=== PATIENT | male | born 1980 | race Two or more races ===

== ENCOUNTER 2020-07-18 21:42 | Emergency (ER) | payer SELFPAY ==
[~2020-07-18] VITALS: Ht 132.1 cm; Wt 52.2 kg
[2020-07-18 21:45] VITALS: BP 138/70
--- NOTE | 2020-07-18 21:48 | Emergency Room Report ---
History of Present Illness General Chief Complaint: Abdominal Pain Source: Patient (Nikhil Paz MD) Present Illness HPI Disclaimer: Please note that this report is being documented using DRAGON technology. This can lead to erroneous entry secondary to incorrect interpretation by the dictating instrument. HPI: 39-year-old male presents for evaluation abdominal pain. 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 He is complaining of intermittent abdominal pain in the upper epigastrium and left upper quadrant. States he has been drinking alcohol. Cannot quantify how much. Denies other drug use. Denies history of intra-abdominal surgery. Denies nausea, vomiting, diarrhea, fever. Reports some burning chest pain and burning pain in the neck as well. Denies shortness of breath, cough, fever, chills. PMH: Reviewed PSH: Reviewed Allergies: Reviewed Social Hx: Alcohol use, Denies drug use (Nikhil Paz MD) Allergies: Coded Allergies: No Known Allergies (Unverified , 07/18/20) COVID-19 Screening Contact w/high risk pt: No Experienced COVID-19 symptoms?: No COVID-19 Testing performed OPTICIANRY TEACHER: No (Nikhil Paz MD) Nursing Documentation-PMH Past Medical History: No Stated History (Nikhil Paz MD) Review of Systems All Other Systems: negative except mentioned in HPI (Nikhil Paz MD) Physical Exam Vital Signs Date Time Temp Pulse Resp B/P (MAP) Pulse Ox O2 Delivery O2 Flow Rate FiO2 07/18/20 21:34 98.4 150 18 138/70 (92) 99 Room Air General: Awake and alert, no acute distress HEENT: NC/AT. EOMI. Cardiovascular: RRR. S1 and S2 normal. No murmur appreciated Resp: Normal work of breathing. No cough, wheezing or crackles appreciated Abdomen: Abdomen is soft, nondistended. Mild tenderness in the epigastrium. No rebound. Negative Carballo's. No masses. Skin: Intact. No abrasions, laceration or rash over the exposed skin MSK: Normal tone and bulk. Moving all extremities. No obvious deformity. Neuro: Awake and alert. Mentating appropriately. (Nikhil Paz MD) Medical Decision Making Diagnostic Impression: Primary Impression: Alcohol dependence Qualified Codes: F10.20 - Alcohol dependence, uncomplicated Additional Impressions: Alcoholic liver disease, unspecified ARF (acute renal failure) Qualified Codes: N17.9 - Acute kidney failure, unspecified New onset type 2 diabetes mellitus ER Course 39-year-old male presents for evaluation of abdominal pain without nausea or vomiting. Differential includes is not limited to gastritis, gastroenteritis, GERD, ACS, pancreatitis, cholecystitis, alcohol abuse, substance abuse among others. Well-appearing with stable vital signs. No acute distress. Labs ordered. Patient signed out to oncoming physician pending results and ultimate disposition. (Nikhil Paz MD) ER Course Signed out to me. He presents with chief plaint abdominal pain. He admits to alcohol use. Last use was couple days ago. No alcohol intoxication here. He does have enlarged liver with elevated LFTs. Most likely secondary to alcoholic liver disease. He also has new onset diabetes. Will discharge home. No evidence of DKA. (Manolo Guevara MD) EKG Diagnostic Results Rate: normal Rhythm: NSR ST Segments: no acute changes (Manolo Guevara MD) Rhythm Strip Diag. Results EP Interpretation: yes Rate: 94 Rhythm: NSR, no PVC's, no ectopy (Manolo Guevara MD) CT/MRI/US Diagnostic Results CT/MRI/US Diagnostic Results : Imaging Test Ordered: CT abdomen pelvis Impression Read by radiologist. Fatty liver. (Manolo Guevara MD) Last Vital Signs Date Time Temp Pulse Resp B/P (MAP) Pulse Ox O2 Delivery O2 Flow Rate FiO2 07/18/20 21:34 98.4 150 18 138/70 (92) 99 Room Air (Nikhil Paz MD) Status: improved (Manolo Guevara MD) Disposition: HOME, SELF-CARE Condition: Stable Scripts Hydrocodone/Acetaminophen 5-325* (HYDROCODONE/ACETAMINOPHEN 5-325*) 1 Each Tablet 1 TAB ORAL Q6H PRN for For Pain, #15 TAB 0 Refills Prov: Manolo Guevara MD 07/19/20 Metformin Hcl* (METFORMIN HCL*) 500 Mg Tablet 500 MG ORAL TWICE A DAY, #60 TAB Prov: Manolo Guevara MD 07/19/20 Additional Instructions: Continue not to drink alcohol. Follow-up with rehab. Follow-up with your doctor in 7 days but return if worse. Nikhil Paz MD Jul 18, 2020 21:48 Manolo Guevara MD Jul 19, 2020 00:57
[2020-07-18] MEDS ORDERED: Mylanta II UD 30ml ORAL ONE (22:00)
[2020-07-18] MEDS ORDERED: Lidocaine 2% Visc 15ml soln ORAL ONE (22:00)
[2020-07-18] MEDS ORDERED: Dicyclomine HCl 10mg/5ml oral soln ORAL ONE (22:00)
[2020-07-18 22:32] LABS: BASOPHILS % (AUTO) 0.8 % (0.0-2.0); HEMATOCRIT 36.5 % (42.0-52.0); HEMOGLOBIN 13.2 G/DL (14.2-18.0); LYMPHOCYTES % (AUTO) 13.1 % (20.0-45.0); MEAN CORPUSCULAR VOLUME 93 FL (80-99); MONOCYTES % (AUTO) 11.5 % (1.0-10.0); NEUTROPHILS % (AUTO) 74.6 % (45.0-75.0); PLATELET COUNT 151 K/UL (150-450); RED BLOOD COUNT 3.92 M/UL (4.70-6.10); RED CELL DISTRIBUTION WIDTH 12.6 % (11.6-14.8); WHITE BLOOD COUNT 7.3 K/UL (4.8-10.8)
[2020-07-18 22:36] LABS: ANION GAP 13 mmol/L (5-15); BLOOD UREA NITROGEN 25 mg/dL (7-18); CALCIUM 9.2 MG/DL (8.5-10.1); CARBON DIOXIDE 27 MMOL/L (21-32); CHLORIDE 95 MMOL/L (98-107); CREATININE 2.1 MG/DL (0.55-1.30); POTASSIUM 3.2 MMOL/L (3.5-5.1); SODIUM 135 MMOL/L (136-145)
[2020-07-18 22:47] LABS: ALANINE AMINOTRANSFERASE 238 U/L (12-78); ALBUMIN 3.8 G/DL (3.4-5.0); ALBUMIN/GLOBULIN RATIO 0.7 (1.0-2.7); ALKALINE PHOSPHATASE 134 U/L (46-116); ASPARTATE AMINO TRANSFERASE 223 U/L (15-37); BILIRUBIN,TOTAL 1.4 MG/DL (0.2-1.0)
[2020-07-18 22:50] LABS: BILIRUBIN,DIRECT 0.7 MG/DL (0.0-0.3)
--- NOTE | 2020-07-19 00:02 | Diagnostic Imaging Report ---
EXAM: CT Abdomen and Pelvis Without Intravenous Contrast CLINICAL HISTORY: ABD PAIN TECHNIQUE: Axial computed tomography images of the abdomen and pelvis without intravenous contrast. CTDI is 3.8 mGy and DLP is 190.70 mGy-cm. One or more of the following dose reduction techniques were used: automated exposure control, adjustment of the mA and/or kV according to patient size, use of iterative reconstruction technique. COMPARISON: No relevant prior studies available. FINDINGS: Evaluation of the soft tissues and vasculature limited on this noncontrast exam. Lung bases: Mild subsegmental atelectatic changes are noted in the right middle lobe. ABDOMEN: Liver: Diffuse hepatic steatosis and hepatomegaly. No discrete hepatic masses are seen. Gallbladder and bile ducts: Unremarkable. No calcified stones. No ductal dilation. Pancreas: Unremarkable. No ductal dilation. Spleen: Unremarkable. No splenomegaly. Adrenals: Unremarkable. No mass. Kidneys and ureters: Unremarkable. No obstructing stones. No hydronephrosis. No ureteral stones. No hydroureter. Stomach and bowel: Unremarkable. No obstruction. No mucosal thickening. PELVIS: Appendix: Normal appearing appendix (85). Bladder: Unremarkable. No stones. Reproductive: Unremarkable as visualized. ABDOMEN and PELVIS: Intraperitoneal space: Unremarkable. No free air. No significant fluid collection. Bones/joints: Within normal limits. Soft tissues: Unremarkable. Vasculature: Unremarkable. No abdominal aortic aneurysm. Lymph nodes: Unremarkable. No enlarged lymph nodes. IMPRESSION: No acute findings identified on this noncontrast CT scan of the abdomen and pelvis to explain the patient's abdominal pain. Hepatic steatosis and hepatomegaly.
[2020-07-19 00:33] LABS: APPEARANCE,URINE CLOUDY; BILIRUBIN, URINE 1+ (NEGATIVE); GLUCOSE, URINE (UA) 4+ (NEGATIVE); KETONES,URINE 2+ (NEGATIVE); LEUKOCYTE ESTERASE ,URINE NEGATIVE (NEGATIVE); NITRITE,URINE NEGATIVE (NEGATIVE); PH,URINE 6 (4.5-8.0); PROTEIN,URINE 3+ (NEGATIVE); UROBILINOGEN,URINE 4 MG/DL (0.0-1.0)
[2020-07-19 00:35] LABS: COLOR,URINE AMBER
[2020-07-19] MEDS ORDERED: METFORMIN HCL500 M1 ORAL (00:56)
[2020-07-19] MEDS ORDERED: HYDROCODON-ACE1 EA15 ORAL (00:56)
[2020-07-19 01:09] VITALS: BP 130/75
--- NOTE | 2020-07-22 01:57 | Cardiology Report ---
APPROVED REPORT EKG Measurement Heart [id number] <Conclusion> Sinus tachycardia Otherwise normal ECG
== END 2020-07-19 01:09 | disposition home or self-care (01) ==
LOC: EDBD 21:42 → EMR 21:54
DX: F10.20 Alcohol dependence, uncomplicated (principal); K70.9 Alcoholic liver disease, unspecified; N17.9 Acute kidney failure, unspecified; E11.9 Type 2 diabetes mellitus without complications
CPT/HCPCS: 36415; 74176; 80053; 80307; 81003; 82248; 82962; 83690; 84484; 85025; 93005; 96361; 96374; 99284; G0480; J7030; S0028